=== PATIENT | female | born 1990 | race American Indian/Alaskan Native ===

== ENCOUNTER 2016-12-30 07:35 | Emergency (ER) | payer OTHER ==
--- NOTE | 2016-12-30 08:23 | XRay Report ---
ROUTINE CHEST, TWO VIEWS: HISTORY: Shortness of breath. The trachea, heart, mediastinal contour, lung mercedes and bony thorax are unremarkable. IMPRESSION: Unremarkable chest x-ray.
[2016-12-30 08:51] LABS: Eosinophils % (Auto) 0.8 % (0.0-4.3)
[2016-12-30 08:55] LABS: Anion Gap 15 mmol/L; Blood Urea Nitrogen 12 mg/dL (7-17); Calcium 9.4 mg/dL (8.4-10.2); Carbon Dioxide 24 mmol/L (22-30); Chloride 101.4 mmol/L (98-107); Glucose 82 mg/dL (65-100); Potassium 3.6 mmol/L (3.6-5.0); Sodium 137 mmol/L (137-145)
[2016-12-30 08:58] LABS: Hemoglobin 11.6 gm/dl (10.1-14.3); Red Blood Count 3.98 M/mm3 (3.65-5.03); White Blood Count 9.5 K/mm3 (4.5-11.0)
[2016-12-30 08:59] LABS: Basophils % (Auto) 0.6 % (0.0-1.8); Hematocrit 35.6 % (30.3-42.9); Mean Corpuscular HGB Conc 33 % (30-34); Mean Corpuscular Hemoglobin 29 pg (28-32); Mean Corpuscular Volume 90 fl (79-97); Mean Platelet Volume 9.1 fl (6-12); Platelet Count 184 K/mm3 (140-440); Red Cell Distribution Width 14.5 % (13.2-15.2)
--- NOTE | 2016-12-30 10:19 | Emergency Department Report ---
- General Chief Complaint: Chest Pain Stated Complaint: CHEST PAIN/COUGHING BLOOD Time Seen by Provider: 12/30/16 10:07 Source: patient Mode of arrival: Ambulatory Limitations: No Limitations - History of Present Illness Initial Comments: 26-year-old female with no significant past medical history presents to the hospital complaining of cough, chest pain, shortness of breath 2 week. Symptoms are intermittent. Patient missed to smoking cigarettes. Pain is intermittent in in the left upper portion of her chest. Described as intermittent sharp and/or tightness rated 7/10 in intensity. No specific aggravating or alleviating factors reported. Patient is pain-free at this time. Patient also complains of intermittent dyspnea on exertion. No shortness of breath currently. Patient has had a productive cough the last 2 weeks but has not been examining sputum until this morning. Patient states she coughed up a clot of blood followed by repeated blood-streaked sputum. No reports of fever, weight loss, calf tenderness, PE/DVT, recent travel, or control pill use - Related Data Previous Rx's Medication Instructions Recorded Last Taken Type Azithromycin [Zithromax Z-CARRINGTON] 1 dose PO DAILY 5 Days 12/30/16 Unknown Rx traMADol [Ultram 50 MG tab] 50 mg PO Q6HR PRN #20 tablet 12/30/16 Unknown Rx Allergies Allergy/AdvReac Type Severity Reaction Status Date / Time No Known Allergies Allergy Unverified 12/30/16 07:59 ED Review of Systems ROS: Stated complaint: CHEST PAIN/COUGHING BLOOD Other details as noted in HPI Comment: All other systems reviewed and negative Other: Constitutional: No fevers chills Eyes: No eye pain visual changes ENT: Denies epistaxis Neck: Denies pain Respiratory: as per hpi Cardiovascular: Denies palpitations, syncope GI: Denies abdominal pain, nausea, vomiting, diarrhea : Denies dysuria, urinary frequency, or urgency Musculoskeletal: Denies back pain, joint swelling Skin: Denies rash, lesions, erythema Neurologic: Denies headache, numbness, weakness Psychiatric: Denies suicidal ideation, hallucinations ED Past Medical Hx - Past Medical History Previous Medical History?: No - Surgical History Past Surgical History?: No - Social History Smoking Status: Current Every Day Smoker Substance Use Type: Alcohol - Medications Home Medications: Home Medications Medication Instructions Recorded Confirmed Last Taken Type Azithromycin [Zithromax Z-CARRINGTON] 1 dose PO DAILY 5 Days 12/30/16 Unknown Rx traMADol [Ultram 50 MG tab] 50 mg PO Q6HR PRN #20 tablet 12/30/16 Unknown Rx ED Physical Exam - General Limitations: No Limitations - Other Other exam information: General: No limitations, patient is alert in no acute distress Head exam: Atraumatic, normocephalic Eyes exam: Normal appearance ENT: Moist mucous membrane, normal oropharynx without exudates or erythema Neck exam: Normal inspection, full range of motion, no meningismus nontender Respiratory exam: Clear to auscultation bilateral, no wheezes, rales, crackles. Chest wall nontender Cardiovascular: Normal rate and rhythm, normal heart sounds Abdomen: Soft, nondistended, and nontender, with normal bowel sounds, no rebound, or guarding Extremity: Full range of motion normal inspection no deformity, no calf tenderness or edema Back: Normal Inspection, full range of motion, no tenderness Neurologic: Alert, oriented x3, cranial nerves intact, no motor or sensory deficit Psychiatric: normal affect, normal mood Skin: Warm, dry, intact ED Course Vital Signs 12/30/16 12/30/16 12/30/16 07:59 10:16 11:00 Temperature 98.6 F Pulse Rate 63 61 64 Respiratory 16 19 20 Rate Blood Pressure 139/90 123/86 O2 Sat by Pulse 100 100 100 Oximetry - Reevaluation(s) Reevaluation #1: 12/30/16 11:21 pt stable and did not require pain meds ED Medical Decision Making - Lab Data Result diagrams: 12/30/16 08:29 12/30/16 08:29 Lab Results 12/30/16 12/30/16 12/30/16 Range/Units 08:29 08:29 10:27 WBC 9.5 (4.5-11.0) K/mm3 RBC 3.98 (3.65-5.03) M/mm3 Hgb 11.6 (10.1-14.3) gm/dl Hct 35.6 (30.3-42.9) % MCV 90 (79-97) fl MCH 29 (28-32) pg MCHC 33 (30-34) % RDW 14.5 (13.2-15.2) % Plt Count 184 (140-440) K/mm3 Lymph % (Auto) 28.4 (13.4-35.0) % [place] % (Auto) 10.6 H (0.0-7.3) % Eos % (Auto) 0.8 (0.0-4.3) % Baso % (Auto) 0.6 (0.0-1.8) % Lymph # 2.7 (1.2-5.4) K/mm3 [place] # 1.0 H (0.0-0.8) K/mm3 Eos # 0.1 (0.0-0.4) K/mm3 Baso # 0.1 (0.0-0.1) K/mm3 Seg Neutrophils % 59.9 (40.0-70.0) % Seg Neutrophils # 5.7 (1.8-7.7) K/mm3 D-Dimer < 135.0 (0-234) ng/mlDDU Sodium 137 (137-145) mmol/L Potassium 3.6 (3.6-5.0) mmol/L Chloride 101.4 (98-107) mmol/L Carbon Dioxide 24 (22-30) mmol/L Anion Gap 15 mmol/L BUN 12 (7-17) mg/dL Creatinine 0.8 (0.7-1.2) mg/dL Estimated GFR > 60 ml/min BUN/Creatinine Ratio 15.00 % Glucose 82 (65-100) mg/dL Calcium 9.4 (8.4-10.2) mg/dL - EKG Data -: EKG Interpreted by Me (sinus rate 66 with premature supraventricular complexes) - EKG Data When compared to previous EKG there are: previous EKG unavailable - Radiology Data Radiology results: report reviewed (chest x-ray PA and lateral: No acute findings) - Medical Decision Making Patient here due to cough for 2 weeks productive of bloody sputum today. Chest x-ray, d-dimer, EKG, laboratory results unremarkable. Patient recovered with Z- Carrington for bronchitis/atypical pneumonia since cough has been intermittent 2 weeks. Patient advised to stop smoking cigarettes. Follow-up will be encouraged - Differential Diagnosis bronchitis, cancer, pneumonia, PE, coagulopathy Critical Care Time: No Critical care attestation.: If time is entered above; I have spent that time in minutes in the direct care of this critically ill patient, excluding procedure time. ED Disposition Clinical Impression: Acute bronchitis, Hemoptysis, Tobacco use Disposition: DISCHARGED TO HOME OR SELFCARE Is pt being admited?: No Does the pt Need Aspirin: No Condition: Stable Instructions: Acute Bronchitis (ED), How to Stop Smoking (ED) Additional Instructions: You are being treated with antibiotics since your cough has been going on for about 2 weeks. I advised that you stop smoking. Take medications as prescribed. Take tramadol as needed for pain. Follow-up with the primary care doctor or clinic provided for further workup and evaluation. Return if symptoms worsen. Prescriptions: Azithromycin [Zithromax Z-CARRINGTON] 1 dose PO DAILY 5 Days traMADol [Ultram 50 MG tab] 50 mg PO Q6HR PRN #20 tablet PRN Reason: Pain Referrals: BHAVYA MINER MD [Staff Physician] - 3-5 Days [facility] [Provider Group] - 3-5 Days Time of Disposition: 11:22
[2016-12-30 11:13] VITALS: BP 123/86
== END 2016-12-30 11:39 | disposition home or self-care (01) ==
LOC: ED 07:35
DX: J20.9 Acute bronchitis, unspecified (principal); R04.2 Hemoptysis; F17.200 Nicotine dependence, unspecified, uncomplicated
CPT/HCPCS: 36415; 71020; 80048; 85025; 85379; 93005; 93010